=== PATIENT | male | born 2000 | race Caucasian/White ===

== ENCOUNTER 2021-07-08 01:37 | Emergency (ER) | payer OTHER ==
[2021-07-08] MEDS ORDERED: Lidocaine 1% (PF) 30 ML VIAL ONE (02:33)
[2021-07-08] MEDS ORDERED: Amoxicillin/Potassium Clav 875 MG TAB ONE (03:55)
[2021-07-08] MEDS ORDERED: Bacitracin 1 PK ONE (03:55)
== END 2021-07-08 04:15 ==
LOC: EEVIPCON 01:37 → NAV ERS 01:37
DX: S01.511A Laceration without foreign body of lip, initial encounter (principal); W50.0XXA Accidental hit or strike by another person, initial encounter; Y92.149 Unspecified place in prison as the place of occurrence of the external cause
CPT/HCPCS: 40650; J2001